=== PATIENT | female | born 1990 | race Caucasian/White ===

== ENCOUNTER 2018-08-21 06:48 | Inpatient (IN) | payer OTHER ==
[~2018-08-21] VITALS: Ht 162.6 cm; Wt 71.3 kg
[2018-09-20] MEDS ORDERED: LACTATED RINGERS 1,000 ML IV SCH ×2 (05:32→05:45)
[2018-09-20] MEDS ORDERED: OXYTOCIN 30U/ 0.9% NaCL 500ML 500 ML IV SCH (05:32)
[2018-09-20] MEDS ORDERED: NEWBORN KIT ONE (05:37)
[2018-09-20 05:42] VITALS: BP 111/77
[2018-09-20] MEDS ORDERED: PREN-3 PO (05:49)
[2018-09-20] MEDS ORDERED: SODIUM CITRATE/CITRIC ACID 30 ML UDC PO ONE (06:00)
[2018-09-20] MEDS ORDERED: LACTATED RINGERS 1,000 ML IVBOLUS ONE (06:00)
[2018-09-20] MEDS ORDERED: METOCLOPRAMIDE 5 MG/ML, 2ML IV ONE (06:00)
[2018-09-20 06:09] LABS: BASOPHILS # (AUTO) 0.05 x10^3/uL (0-0.1); BASOPHILS % (AUTO) 0 % (0-1); EOSINOPHILS # (AUTO) 0.29 x10^3/uL (0-0.4); EOSINOPHILS % (AUTO) 3 % (1-7); LYMPHOCYTES # (AUTO) 2.11 x10^3/uL (1-3.4); LYMPHOCYTES % (AUTO) 18 % (22-44); MD NO; MEAN CORPUSCULAR HEMOGLOBIN 29.6 pg (27.0-34.8); MEAN CORPUSCULAR HGB CONC 33.8 g/dL (32.4-35.8); MEAN CORPUSCULAR VOLUME 87.7 fL (80-100); MEAN PLATELET VOLUME 9.7 fL (7.4-10.4); MONOCYTES % (AUTO) 8 % (2-9); NEUTROPHILS # (AUTO) 8.41 x10^3/uL (1.8-6.8); NEUTROPHILS % (AUTO) 72 % (42-75); PLATELET COUNT 207 x10^3/uL (130-400); RED BLOOD COUNT 4.82 x10^6/uL (3.82-5.3); RED CELL DISTRIBUTION WIDTH 13.4 % (9.6-15.2)
[2018-09-20] MEDS ORDERED: SODIUM CITRATE/CITRIC ACID 30 ML UDC ONE (06:17)
[2018-09-20] MEDS ORDERED: METOCLOPRAMIDE 5 MG/ML, 2ML ONE (06:17)
[2018-09-20] MEDS ORDERED: OXYTOCIN 30U/ 0.9% NaCL 500ML 500 ML ONE (06:17)
[2018-09-20] MEDS ORDERED: ONDANSETRON 2MG/ML, 2ML ONE (07:17)
[2018-09-20] MEDS ORDERED: OXYTOCIN 10 UNITS/ML, 1ML ONE (07:17)
[2018-09-20] MEDS ORDERED: KETOROLAC 30 MG/1 ML ONE (07:17)
[2018-09-20] MEDS ORDERED: EPHEDRINE 50 MG/ML, 1ML ONE (07:17)
[2018-09-20] MEDS ORDERED: DEXAMETHASONE 4 MG/ML, 1ML ONE (07:17)
[2018-09-20] MEDS ORDERED: CEFAZOLIN 1,000 MG ONE (07:17)
[2018-09-20] MEDS ORDERED: FENTANYL PF 100 MCG/2ML ONE (07:17)
[2018-09-20] MEDS ORDERED: PHENYLEPHRINE 10 MG/ML ONE (07:17)
[2018-09-20] MEDS ORDERED: LABETALOL 5MG/ML, 20ML IV PRN (07:30)
[2018-09-20] MEDS ORDERED: PROMETHAZINE 25 MG/ML, 1ML IV PRN (07:30)
[2018-09-20] MEDS ORDERED: HYDROmorphone 1 MG/ML, 1ML IV PRN (07:30)
[2018-09-20] MEDS ORDERED: ALBUTEROL SULFATE 2.5 MG/3 ML NPPB PRN (07:30)
[2018-09-20] MEDS ORDERED: hydrALAzine 20 MG/ML, 1ML IV PRN (07:30)
[2018-09-20] MEDS ORDERED: EPHEDRINE 50 MG/ML, 1ML IVPush PRN (07:30)
[2018-09-20] MEDS ORDERED: ONDANSETRON 2MG/ML, 2ML IVPush PRN (07:30)
[2018-09-20] MEDS ORDERED: FENTANYL PF 100 MCG/2ML IV PRN (07:30)
[2018-09-20] MEDS ORDERED: MIDAZOLAM 1 MG/ML, 2ML IV PRN (07:30)
[2018-09-20] MEDS ORDERED: MEPERIDINE/PF 25MG/0.5ML IVPush PRN (07:30)
[2018-09-20] MEDS ORDERED: HYDROcodone/APAP 7.5-325MG/15ML UDC PO PRN (07:30)
[2018-09-20] MEDS ORDERED: OXYcodone 5 MG/5 ML ORAL.SOL UDC PO PRN (07:30)
[2018-09-20] MEDS: LACTATED RINGERS 1,000 ML IV SCH ×4 (08:36→18:36)
[2018-09-20] MEDS ORDERED: MEPERIDINE/PF 100 MG/ML IVPush PRN (09:00)
[2018-09-20] MEDS ORDERED: ACETAMINOPHEN 325 MG TABLET PO PRN (09:00)
[2018-09-20] MEDS ORDERED: KETOROLAC 30 MG/1 ML IV PRN (09:00)
[2018-09-20] MEDS ORDERED: morphine SULFATE 10 MG/ML, 1ML IVPush PRN ×2 (09:00)
[2018-09-20] MEDS ORDERED: CARBOPROST TROMETHAMINE 250 MCG/ML, 1ML IM PRN (09:00)
[2018-09-20] MEDS ORDERED: ONDANSETRON 2MG/ML, 2ML IV PRN (09:00)
[2018-09-20] MEDS: PRENATAL VIT/IRON/FA 1 EACH TABLET PO SCH (09:00)
[2018-09-20] MEDS ORDERED: MEPERIDINE/PF 50 MG/ML IVPush PRN (09:00)
[2018-09-20] MEDS ORDERED: METHYLERGONOVINE 0.2 MG/ML IM PRN (09:00)
[2018-09-20] MEDS ORDERED: IBUPROFEN 600 MG TABLET PO PRN (09:00)
[2018-09-20] MEDS ORDERED: MISOPROSTOL 200 MCG TABLET PR PRN (09:00)
[2018-09-20] MEDS ORDERED: morphine SULFATE 10 MG/ML, 1ML ONE (09:57)
[2018-09-20] MEDS: OXYTOCIN 30U/ 0.9% NaCL 500ML 500 ML IV SCH ×2 (10:14→18:36)
[2018-09-20 10:30] VITALS: BP 108/64
[2018-09-20] MEDS: OXYcodone/APAP 5/325MG TABLET PO PRN ×3 (11:29→20:11)
[2018-09-20] MEDS: KETOROLAC 30 MG/1 ML IV SCH ×3 (14:59→20:55)
[2018-09-20 15:00] VITALS: BP 104/66
[2018-09-20 15:54] LABS: BASOPHILS # (AUTO) 0.02 x10^3/uL (0-0.1); BASOPHILS % (AUTO) 0 % (0-1); EOSINOPHILS # (AUTO) 0.02 x10^3/uL (0-0.4); EOSINOPHILS % (AUTO) 0 % (1-7); LYMPHOCYTES % (AUTO) 7 % (22-44); MD NO; MEAN CORPUSCULAR HEMOGLOBIN 29.5 pg (27.0-34.8); MEAN CORPUSCULAR HGB CONC 33.2 g/dL (32.4-35.8); MEAN CORPUSCULAR VOLUME 88.9 fL (80-100); MEAN PLATELET VOLUME 9.5 fL (7.4-10.4); MONOCYTES # (AUTO) 0.61 x10^3/uL (0.2-0.8); MONOCYTES % (AUTO) 4 % (2-9); NEUTROPHILS % (AUTO) 89 % (42-75); PLATELET COUNT 194 x10^3/uL (130-400); RED BLOOD COUNT 4.02 x10^6/uL (3.82-5.3); RED CELL DISTRIBUTION WIDTH 13.5 % (9.6-15.2)
[2018-09-20 20:00] VITALS: BP 98/57
[2018-09-20] MEDS: DOCUSATE 100 MG CAPSULE PO PRN (20:11)
[2018-09-21] MEDS: LACTATED RINGERS 1,000 ML IV SCH ×5 (00:36→16:36)
[2018-09-21 00:45] VITALS: BP 109/65
[2018-09-21] MEDS: OXYcodone/APAP 5/325MG TABLET PO PRN ×5 (01:27→21:02)
[2018-09-21] MEDS: KETOROLAC 30 MG/1 ML IV SCH ×4 (03:09→21:01)
[2018-09-21] MEDS: OXYTOCIN 30U/ 0.9% NaCL 500ML 500 ML IV SCH ×2 (04:36→14:36)
[2018-09-21 05:08] VITALS: BP 99/60
[2018-09-21] MEDS ORDERED: SIMETHICONE DROPS 40 MG/0.6 ML BOTTLE PO PRN (06:30)
[2018-09-21] MEDS ORDERED: OXYcodone IR 5MG TABLET PO PRN (06:30)
[2018-09-21] MEDS ORDERED: SIMETHICONE 80 MG CHEW TAB PO PRN (06:30)
[2018-09-21 08:00] VITALS: BP 114/74
[2018-09-21] MEDS: DOCUSATE 100 MG CAPSULE PO PRN ×2 (08:18→21:02)
[2018-09-21] MEDS: PRENATAL VIT/IRON/FA 1 EACH TABLET PO SCH (09:00)
[2018-09-21 20:40] VITALS: BP 117/75
[2018-09-22] MEDS: LACTATED RINGERS 1,000 ML IV SCH ×2 (00:36)
[2018-09-22] MEDS: OXYTOCIN 30U/ 0.9% NaCL 500ML 500 ML IV SCH (00:36)
[2018-09-22] MEDS: KETOROLAC 30 MG/1 ML IV SCH (02:59)
[2018-09-22] MEDS: OXYcodone/APAP 5/325MG TABLET PO PRN ×2 (02:59→09:24)
[2018-09-22 09:00] VITALS: BP 120/75
[2018-09-22] MEDS: DOCUSATE 100 MG CAPSULE PO PRN (09:23)
== END 2018-09-22 10:35 | disposition home or self-care (01) | DRG 788 ==
LOC: LDIP 09-20 05:30 → 2NW 09-20 10:28
PROVIDERS: ADMIT Obstetrics & Gynecology; ATTEND Obstetrics & Gynecology
PROC: 10D00Z1 Extraction of Products of Conception, Low, Open Approach (ICD-10-PCS; principal; 2018-09-20)
DX: O34.211 Maternal care for low transverse scar from previous cesarean delivery (principal); Z37.0 Single live birth; Z3A.37 37 weeks gestation of pregnancy
CPT/HCPCS: 36415; 85025; 86850; 86900; 86923; G0378; J0690; J1100; J1885; J2405; J3010; J2270; J2370; J2590; J2765; J7120